=== PATIENT | male | born 1965 | race Caucasian/White ===

== ENCOUNTER 2020-06-23 14:15 | Outpatient (CLI) | payer OTHER ==
[2020-06-24 06:59] LABS: SARS-CoV-2 PCR by NAA Not Detected (NotDetected)
== END 2020-06-23 14:16 | disposition home or self-care (01) ==
LOC: CSHLAB 14:15
PROVIDERS: ATTEND Internal Medicine Gastroenterology
DX: Z20.822 Contact with and (suspected) exposure to COVID-19 (principal); K63.5 Polyp of colon
CPT/HCPCS: 87635; U0003; U0005

== ENCOUNTER 2020-06-26 06:13 | Day surgery (SDC) | payer OTHER ==
[2020-06-25 09:10] VITALS: BMI 35.3
[2020-06-26] MEDS ORDERED: Lidocaine 1% MPF 2 ML VIAL ONE (06:30)
[2020-06-26] MEDS ORDERED: PROPOFOL 40 ML ONE (07:04)
[2020-06-26] MEDS ORDERED: Lidocaine 1% PF 5 ML VIAL ONE (07:04)
== END 2020-06-26 09:39 | disposition home or self-care (01) ==
LOC: CSHSDC 06:13
PROVIDERS: ATTEND Internal Medicine Gastroenterology
PROC: 0DJD8ZZ Inspection of Lower Intestinal Tract, Via Natural or Artificial Opening Endoscopic (ICD-10-PCS; principal; 2020-06-26)
DX: Z12.11 Encounter for screening for malignant neoplasm of colon (principal); Z86.010 Personal history of colon polyps; K57.30 Diverticulosis of large intestine without perforation or abscess without bleeding; I10 Essential (primary) hypertension; E11.9 Type 2 diabetes mellitus without complications; E78.5 Hyperlipidemia, unspecified; D68.51 Activated protein C resistance; K21.9 Gastro-esophageal reflux disease without esophagitis
CPT/HCPCS: J2704